=== PATIENT | male | born 1965 | race Caucasian/White ===

== ENCOUNTER 2020-04-20 14:11 | Emergency (ER) | payer OTHER, SELFPAY ==
[2020-04-20 14:31] VITALS: BP 185/100; PULSE 72; RESP 17; TEMP 36.3; O2SAT 99
--- NOTE | 2020-04-20 15:14 | ED.DENTAL ---
HPI - Dental/Oral General Chief complaint: Dental/Oral Stated complaint: toothache Time Seen by Provider: 04/20/20 14:42 Source: patient Mode of arrival: ambulatory Limitations: no limitations History of Present Illness HPI Narrative: Patient is a 54-year-old male who presents to emergency department for evaluation of left-sided facial swelling along the jawline currently on antibiotics for dental abscess prescribed by dentistry patient notes despite 6 days of antibiotics he has not had improvement. Patient denies any fever chills nausea vomiting URI symptoms or other complaints presents in no distress Related Data Home Medications Medication Instructions Recorded Confirmed levothyroxine 75 mcg PO DAILY 04/20/20 04/20/20 Allergies Allergy/AdvReac Type Severity Reaction Status Date / Time No Known Allergies Allergy Verified 04/20/20 14:33 Review of Systems Review of Systems: All systems reviewed & are unremarkable except as noted in HPI and below PMFSH Past Medical History Medical History (Updated 04/20/20 @ 15:17 by Torsten Keene PA-C) Colitis Social History Social History (Updated 04/20/20 @ 15:15 by Torsten Keene PA-C) Smoking status: Current every day smoker Gender identity (if verbalized by the patient): Male Exam Narrative: Exam Narrative: GENERAL: Well-appearing, well-nourished, and in no acute distress. HEAD: Normocephalic, atraumatic. EYES: PERRLA and EOMI. ENT: Nares clear, no rhinorrhea or epistaxis. Mucous membranes moist. Patient with diffuse dental caries in the oropharynx with tenderness and swelling along the left lower jawline uvula is midline no trismus or drooling NECK: Supple. No adenopathy or masses. SKIN: Warm, dry, no rash. NEURO: No focal deficits. Alert and oriented x3. PSYCH: Normal mood and affect. Course Course Emergency Course: Patient presented with dental abscess which was drained in the emergency department patient provided with follow-up and reasons to return afebrile nontoxic-appearing no distress Vital Signs Vital signs: Vital Signs Temperature 97.3 F L 04/20/20 14:31 Pulse Rate 72 04/20/20 14:31 Respiratory Rate 17 04/20/20 14:31 Blood Pressure 185/100 H 04/20/20 14:31 Pulse Oximetry 99 04/20/20 14:31 Temperature 97.3 F L 04/20/20 14:31 Pulse Rate 72 04/20/20 14:31 Respiratory Rate 17 04/20/20 14:31 Blood Pressure 185/100 H 04/20/20 14:31 Pulse Oximetry 99 04/20/20 14:31 Procedures Other Procedure Procedure 1: Other Procedure: Single straight incision with 18-gauge needle used to drain abscess purulent drainage and blood obtained no complications MDM - Dental/Oral MDM Narrative Medical decision making narrative: Paitents pain and complaint coupled with physical findings are consistant with dentalgia. There are no focal signs of space occupying lesions that are compromising to the ariway. The floor of the mouth is soft with no signs of Ludwigs Angina. Patient is without trismus or drooling and able to swallow secreations. Patient is felt appropriate for discharge home with dental follow up. Discharge Plan Discharge Clinical Impression: Dental abscess Patient Disposition: Home, Self-Care Condition: Stable Instructions: Antibiotic Form, Dental Abscess (ED) Additional Instructions: Follow-up with dentistry in the next 7 days. Go to ER for shortness of breath, difficulty breathing, chest pain, fever/chills, weakness, nauseau/vomitting, unable to swallow or open the mouth etc. or any other concerns. Stay well-hydrated Take any prescribed medications as directed. Follow patient education sheets If you do not have a drug allergy to tylenol or motrin and can tolerate it then take tylenol or motrin as needed for discomfort/pain. Prescriptions: New chlorhexidine gluconate [Peridex] 0.12 % mouthwash 15 ml mucous membrane BID Qty: 1500 RF: 0 amoxicillin 500 mg capsule 500 mg PO Q8H
[2020-04-20 15:28] VITALS: BP 133/75; PULSE 72; RESP 15; O2SAT 100
== END 2020-04-20 15:29 | disposition home or self-care (01) ==
PROVIDERS: Emergency Provider Emergency Medicine; PCP Internal Medicine
DX: K04.7 Periapical abscess without sinus (principal); F17.200 Nicotine dependence, unspecified, uncomplicated
CPT/HCPCS: 41800; 99283